=== PATIENT | male | born 1980 | race Caucasian/White ===

== ENCOUNTER 2017-09-12 11:14 | Emergency (ER) | payer BC ==
[2017-09-12] MEDS ORDERED: NS 0.9% 1000 ML* 1,000 ML IV ONE (11:55)
[2017-09-12 12:16] LABS: ABS Basophils 0 10^3/ul (0-0.2); ABS Eosinophils 0.1 10^3/ul (0-0.6); ABS Lymphocytes 0.7 10^3/ul (1.0-4.8); ABS Monocytes 0.3 10^3/ul (0-0.8); ABS Neutrophils 2.7 10^3/ul (1.5-7.7); ABS Nucleated RBC 0 10^3/ul; Eosinophil % 2.7 % (0-6); Hematocrit 44 % (42-52); Hemoglobin 15.1 g/dl (14.0-18.0); Lymphocyte % 18.3 % (25-47); Mean Corpuscular HGB Conc 34 g/dl (31-36); Mean Corpuscular Hemoglobin 32 pg (27-31); Mean Corpuscular Volume 93 fL (80-94); Mean Platelet Volume 8.5 um3 (7.4-10.4); Nucleated Red Blood Cells % 0; Platelet Count 117 10^3/ul (150-450); Red Blood Count 4.71 10^6/ul (4.00-5.40); Red Cell Distribution Width 14 % (10.5-15); White Blood Count 3.8 10^3/ul (3.5-10.8)
[2017-09-12 12:34] LABS: EGFR Non-African American 114.8 (>60)
--- NOTE | 2017-09-12 12:49 | RAD ---
CLINICAL HISTORY: Left flank pain COMPARISON: None TECHNIQUE: Multiple contiguous axial CT scans were obtained of the abdomen and pelvis, without intravenous contrast enhancement. Coronal and sagittal multiplanar reformations are submitted for review. Oral contrast was not administered. FINDINGS: The study is limited by the lack of intravenous contrast. This limits evaluation of the solid organs and vasculature. LUNG BASES: The lung bases are clear. LIVER: The liver is normal in shape, size, contour, and attenuation. There is cavernous chest formation of the portal vein. BILE DUCTS: There is no intrahepatic or extrahepatic biliary dilatation. GALLBLADDER: The gallbladder is normal, without pericholecystic inflammatory change. PANCREAS: There is calcification of the pancreatic head. SPLEEN: The spleen measures 16.4 cm in long axis. There are calcified splenic granulomas. 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 UPPER GI TRACT: Evaluation of the gastrointestinal tract is limited by incomplete gastric distention. The upper GI tract is unremarkable. SMALL BOWEL AND MESENTERY: The small bowel is normal in contour, course, and caliber. There is no obstruction or dilatation. COLON: The colon is normal in contour, course, caliber. There is no pericolonic inflammatory change. There is a tubular, vermiform, hollow viscus that is blind ending, and originates from the cecum, consistent with a normal appendix. There is no periappendiceal inflammatory change. This is best seen on axial images 96 through 107. ADRENALS: Normal bilaterally. KIDNEYS: There is a 0.4 cm calculus of the mid third of the left ureter. There is mild pelvocaliectasis. BLADDER: The bladder is smooth in contour. PELVIC ORGANS: The prostate gland is normal. The seminal vesicles are symmetric. AORTA: The aorta is normal. IVC: Unremarkable LYMPH NODES: There is no lymphadenopathy by size criteria. ABDOMINAL WALL: There is no evidence for abdominal wall hernia. BONES AND SOFT TISSUES: There is advanced osteoarthritis of the right hip. There is post surgical change to the spine. OTHER: None IMPRESSION: 1. 0.4 CM CALCULUS OF THE LEFT MID URETER WITH MILD HYDRONEPHROSIS. 2. 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 3. THERE IS CALCIFICATION OF THE PANCREATIC HEAD SUGGESTIVE OF THE SEQUELA OF CHRONIC PANCREATITIS.
[2017-09-12 12:56] LABS: Urine Appearance Cloudy; Urine Blood 3+ (Negative); Urine Color Yellow; Urine Ketones Negative (Negative); Urine Protein Negative (Negative); Urine Specific Gravity 1.011 (1.010-1.030); Urine Urobilinogen Negative (Negative)
[2017-09-12] MEDS ORDERED: Ciprofloxacin TAB* 500 MG PO ONE (13:45)
[2017-09-12 14:16] VITALS: BP 148/87
--- NOTE | 2017-09-12 15:20 | ED ---
William Alatorre Tiffany, scribed for Adolfo Pearson MD on 09/12/17 at 1209 . Abdominal Pain/Male - HPI Summary HPI Summary: 37 year old M presenting to [facility] complains of left flank pain since two days ago, worse since this morning. States that the pain radiates to his groin. The patient rates the pain 3/10 in severity. Symptoms aggravated by nothing. Symptoms alleviated by nothing. Patient reports hematuria. Was evaluated yesterday at Urgent Care for, dx UTI, symptoms have worsened since. - History of Current Complaint Chief Complaint: EDFlankPain Stated Complaint: ABD PAIN Time Seen by Provider: 09/12/17 11:44 Hx Obtained From: Patient Onset/Duration: Lasting Days - 2 days, Still Present, Worse Since - this morning Severity Currently: Mild Pain Intensity: 3 Pain Scale Used: 0-10 Numeric Location: Flank - left Radiates: Yes Radiates to: Other - groin Aggravating Factor(s): Nothing Alleviating Factor(s): Nothing Associated Signs And Symptoms: Positive: Urinary Symptoms - hematuria - Allergies/Home Medications Allergies/Adverse Reactions: Allergies Allergy/AdvReac Type Severity Reaction Status Date / Time No Known Allergies Allergy Verified 09/12/17 11:34 Home Medications: Home Medications Levothyroxine TAB* [Synthroid TAB*] 125 mcg PO DAILY 09/12/17 [History Confirmed 09/12/17] PMH/Surg Hx/FS Hx/Imm Hx Previously Healthy: No Endocrine/Hematology History: Reports: Hx Thyroid Disease - irratiated Denies: Hx Diabetes Cardiovascular History: Denies: Hx Hypertension Respiratory History: Reports: Hx Asthma - as a child Denies: Hx Chronic Obstructive Pulmonary Disease (COPD) GI History: Denies: Hx Ulcer Sensory History: Reports: Hx Contacts or Glasses Opthamlomology History: Reports: Hx Contacts or Glasses - Surgical History Surgery Procedure, Year, and Place: Spinal fusion in high school Infectious Disease History: No Infectious Disease History: Denies: Hx Hepatitis, Hx Human Immunodeficiency Virus (HIV), Traveled Outside the US in Last 30 Days - Family History Known Family History: Positive: Other - kidney stones - Social History Alcohol Use: Daily Hx Substance Use: No Substance Use Type: Reports: None Hx Tobacco Use: No Smoking Status (MU): Never Smoked Tobacco Review of Systems Negative: Fever Positive: flank pain - left, hematuria All Other Systems Reviewed And Are Negative: Yes Physical Exam - Summary Physical Exam Summary: VITAL SIGNS: Reviewed. GENERAL: Patient is a well-developed and nourished male who is lying comfortable in the stretcher. Patient is not in any acute respiratory distress. HEAD AND FACE: Normocephalic and atraumatic. EYES: PERRLA, EOMI x 2, No injected conjunctiva. EARS: Hearing grossly intact. Ear canals and tympanic membranes are WNL. MOUTH: Oropharynx within normal limits. NECK: Supple, trachea is midline, no adenopathy, no JVD. CHEST: Symmetric, no tenderness at palpation LUNGS: Clear to auscultation bilaterally. No wheezing or crackles. CVS: RRR, S1 and S2 present, no murmurs or gallops appreciated. ABDOMEN: Left posterior abdominal tenderness. EXTREMITIES: FROM in all major joints, no edema, no cyanosis or clubbing. NEURO: Alert and oriented x 3. No acute neurological deficits. Speech is normal. SKIN: Dry and warm Triage Information Reviewed: Yes Vital Signs On Initial Exam: Initial Vitals Temp Pulse Resp BP Pulse Ox 97.1 F 64 16 131/88 99 09/12/17 11:31 09/12/17 11:31 09/12/17 11:31 09/12/17 11:31 09/12/17 11:31 Vital Signs Reviewed: Yes Diagnostics - Vital Signs Vital Signs Temp Pulse Resp BP Pulse Ox 09/12/17 11:31 97.1 F 64 16 131/88 99 - Laboratory Lab Results: Lab Results 09/12/17 09/12/17 09/12/17 Range/Units 12:03 12:04 12:33 WBC 3.8 (3.5-10.8) 10^3/ul RBC 4.71 (4.00-5.40) 10^6/ul Hgb 15.1 (14.0-18.0) g/dl Hct 44 (42-52) % MCV 93 (80-94) fL MCH 32 H (27-31) pg MCHC 34 (31-36) g/dl RDW 14 (10.5-15) % Plt Count 117 L (150-450) 10^3/ul MPV 8.5 (7.4-10.4) um3 Neut % (Auto) 71.5 (38-83) % Lymph % (Auto) 18.3 L (25-47) % Cotton % (Auto) 6.8 (0-7) % Eos % (Auto) 2.7 (0-6) % Baso % (Auto) 0.7 (0-2) % Absolute Neuts (auto) 2.7 (1.5-7.7) 10^3/ul Absolute Lymphs (auto) 0.7 L (1.0-4.8) 10^3/ul Absolute Monos (auto) 0.3 (0-0.8) 10^3/ul Absolute Eos (auto) 0.1 (0-0.6) 10^3/ul Absolute Basos (auto) 0 (0-0.2) 10^3/ul Absolute Nucleated RBC 0 10^3/ul Nucleated RBC % 0 Sodium 137 L (139-145) mmol/L Potassium 4.1 (3.5-5.0) mmol/L Chloride 106 (101-111) mmol/L Carbon Dioxide 25 (22-32) mmol/L Anion Gap 6 (2-11) mmol/L BUN 13 (6-24) mg/dL Creatinine 0.76 (0.67-1.17) mg/dL Est GFR ( Amer) 147.6 (>60) Est GFR (Non-Af Amer) 114.8 (>60) BUN/Creatinine Ratio 17.1 (8-20) Glucose 100 (70-100) mg/dL Calcium 8.7 (8.6-10.3) mg/dL Total Bilirubin 2.30 H (0.2-1.0) mg/dL AST 66 H (13-39) U/L ALT 58 H (7-52) U/L Alkaline Phosphatase 61 (34-104) U/L Total Creatine Kinase 158 (10-223) U/L C-Reactive Protein 2.74 (< 5.00) mg/L Total Protein 6.7 (6.4-8.9) g/dL Albumin 3.6 (3.2-5.2) g/dL Globulin 3.1 (2-4) g/dL Albumin/Globulin Ratio 1.2 (1-3) Lipase 72 (11.0-82.0) U/L Urine Color Yellow Urine Appearance Cloudy Urine pH 7.0 (5-9) Ur Specific [place] 1.011 (1.010-1.030) Urine Protein Negative (Negative) Urine Ketones Negative (Negative) Urine Blood 3+ A (Negative) Urine Nitrate Negative (Negative) Urine Bilirubin Negative (Negative) Urine Urobilinogen Negative (Negative) Ur Leukocyte Esterase Negative (Negative) Urine WBC (Auto) 3+(>20/hpf) A (Absent) Urine RBC (Auto) 3+(>10/hpf) A (Absent) Urine Bacteria Absent (Absent) Urine Glucose Negative (Negative) Result Diagrams: 09/12/17 12:04 09/12/17 12:03 Lab Statement: Any lab studies that have been ordered have been reviewed, and results considered in the medical decision making process. - CT Abd/Pel CT Interpretation Completed By: Radiologist - 1. 0.4 CM CALCULUS OF THE LEFT MID URETER WITH MILD HYDRONEPHROSIS. 2. 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 3. THERE IS CALCIFICATION OF THE PANCREATIC HEAD SUGGESTIVE OF THE SEQUELA OF CHRONIC PANCREATITIS. ED physician has reviewed this report. - EKG 12:10 Cardiac Rate: NL - 73 BPM EKG Rhythm: Sinus Rhythm EKG Interpretation: No ST elevations. Abdominal Pain Fem Course/Dx - Course Assessment/Plan: Initially the patient was placed on a shelter monitor, IV access was obtained, and the patient was started and an IV fluids. Blood test results without any significant abnormality except increased LFTs. Urinalysis positive for WBCs and blood. EKG: Normal sinus rhythm at without any ST elevations. Abdominopelvic CT impression: 0.4 cm calculus of the left mid ureter with mild hydronephrosis. There is cavernous transformation of portal vein with splenomegaly and evidence of portal hypertension. There is calcifications of the pancreatic head suggestive of a sequelae of chronic pancreatitis. In the ED course the patient was given Toradol for the pain and ciprofloxacin for UTI. The patient doesnt have any fever therefore this point I believe the patient is safe to be discharged, follow-up with urology. The patient was instructed to return to the emergency room immediately if the patient develops any fever, more pain, nausea vomiting or diarrhea. The patient understands and agrees. I discussed all the findings and test results with the patient. Patient was instructed to return to the emergency room immediately if any of the symptoms return or worsens. Plan of care was discussed with the patient and understands and agrees. All questions were answered at patient satisfaction. There were no further complaints or concerns. - Diagnoses Differential Diagnosis/HQI/PQRI: Appendicitis, Bowel Obstruction, Constipation, Renal Colic, Ureteral Stone, Urinary Tract Infection Provider Diagnoses: Ureteral stone, Kidney stone Discharge - Sign-Out/Discharge Documenting (check all that apply): Discharge/Admit/Transfer - Discharge Plan Condition: Stable Disposition: HOME Prescriptions: Ciprofloxacin TAB* [Cipro 500 MG TAB*] 500 mg PO BID #6 tab HYDROcodone/ACETAMIN 5-325 MG* [[place] 5-325 TAB*] 1 tab PO Q4H PRN #12 tab MDD 4 PRN Reason: Pain Patient Education Materials: Kidney Stones (ED), Flank Pain (ED) Referrals: [facility] [place] [place]ERR[place] [Outside] - 3 Days No Primary Care Phys,NOPCP [Medical Doctor] - Hector North MD [Medical Doctor] - 3 Days Additional Instructions: FOLLOW UP WITH DR. NORTH, UROLOGY, IN 3 DAYS. YOU ARE ADVISED TO ARRANGE A PRIMARY CARE PROVIDER FOR A FOLLOW-UP APPOINTMENT IN 3 DAYS. RETURN TO THE EMERGENCY DEPARTMENT FOR NEW OR WORSENING SYMPTOMS. - Billing Disposition and Condition Condition: STABLE Disposition: Home The documentation as recorded by the William ryan Tiffany accurately reflects the service I personally performed and the decisions made by , Adolfo Pearson MD.
== END 2017-09-12 14:14 | disposition home or self-care (01) ==
LOC: ED 11:14
DX: N13.2 Hydronephrosis with renal and ureteral calculous obstruction (principal); R16.1 Splenomegaly, not elsewhere classified; R31.9 Hematuria, unspecified; E07.9 Disorder of thyroid, unspecified; J45.909 Unspecified asthma, uncomplicated; Z84.1 Family history of disorders of kidney and ureter
CPT/HCPCS: 36415; 74176; 80053; 81003; 81015; 82550; 83690; 85025; 86140; 87086; 93005; 96360; 99282; A9270-GY

== ENCOUNTER 2017-11-04 09:25 | Emergency (ER) | payer BC ==
[2017-11-04 10:09] VITALS: BP 138/92
--- NOTE | 2017-11-04 10:13 | ED ---
Throat Pain/Nasal Congestion - HPI Summary HPI Summary: Patient is a 37-year-old male who presents emergency department for worsening dental pain over the last 2 weeks. Patient denies facial swelling but notes some fullness to his right side of his neck. Pain is improved with ibuprofen temporarily. He denies fever, chills, nausea, vomiting. He denies past medical history. Patient states he has an appointment with splint dental for this coming Tuesday. Symptoms are mild in severity. Touching affected area makes symptoms worse. - History of Current Complaint Chief Complaint: EDDentalPain Time Seen by Provider: 11/04/17 09:42 Hx Obtained From: Patient - Allergies/Home Medications Allergies/Adverse Reactions: Allergies Allergy/AdvReac Type Severity Reaction Status Date / Time No Known Allergies Allergy Verified 11/04/17 09:32 PMH/Surg Hx/FS Hx/Imm Hx Previously Healthy: Yes Endocrine/Hematology History: Reports: Hx Thyroid Disease - irratiated Denies: Hx Diabetes Cardiovascular History: Denies: Hx Hypertension Respiratory History: Reports: Hx Asthma - as a child Denies: Hx Chronic Obstructive Pulmonary Disease (COPD) GI History: Denies: Hx Ulcer History: Reports: Hx Kidney Stones - LEFT 2018 Sensory History: Reports: Hx Contacts or Glasses Opthamlomology History: Reports: Hx Contacts or Glasses - Surgical History Surgery Procedure, Year, and Place: Spinal fusion in high school Infectious Disease History: No Infectious Disease History: Denies: Hx Hepatitis, Hx Human Immunodeficiency Virus (HIV), Traveled Outside the US in Last 30 Days - Family History Known Family History: Positive: Unknown, Other - kidney stones - Social History Occupation: Employed Full-time Lives: Alone Alcohol Use: Daily Hx Substance Use: No Substance Use Type: Reports: None Hx Tobacco Use: No Smoking Status (MU): Never Smoked Tobacco Review of Systems Constitutional: Negative Negative: Fever, Chills Positive: Dental Pain Gastrointestinal: Negative Negative: Vomiting, Nausea All Other Systems Reviewed And Are Negative: Yes Physical Exam Triage Information Reviewed: Yes Vital Signs On Initial Exam: Initial Vitals Temp Pulse Resp BP Pulse Ox 99.1 F 79 18 140/92 97 11/04/17 09:27 11/04/17 09:27 11/04/17 09:27 11/04/17 09:27 11/04/17 09:27 Vital Signs Reviewed: Yes Appearance: Positive: Well-Appearing - Patient sitting on bed in no acute distress. Skin: Positive: Warm, Dry Head/Face: Positive: Normal Head/Face Inspection Eyes: Positive: Normal ENT: Positive: Other - Numerous dental fillings noted to right back molars. No drainable abscess noted. Surrounding gums are erythematous and mildly edematous. No facial swelling. No swelling of the tongue. No submandibular edema. No trismus. Neck: Positive: Supple, Nontender, No Lymphadenopathy Neurological: Positive: Normal, CN Intact II-III Psychiatric: Positive: Affect/Mood Appropriate Diagnostics - Vital Signs Vital Signs Temp Pulse Resp BP Pulse Ox 11/04/17 09:27 99.1 F 79 18 140/92 97 - Laboratory Lab Statement: Any lab studies that have been ordered have been reviewed, and results considered in the medical decision making process. EENT Course/Dx - Course Course Of Treatment: Patient presenting for ongoing dental pain. He is afebrile and well-appearing. Will start on penicillin for suspected dental abscess. Advised to rotate between Tylenol and Motrin for pain as directed. To apply warm compresses to face for pain. Follow-up with dentist on Tuesday as scheduled. To return to ER symptoms change or worsen. Patient understands and agrees with plan. - Differential Diagnoses Differential Diagnoses: Dental Abscess, Dental Caries, Gingivitis, Periodontic Abscess, Periodontic Disease, Peritonsillar Ulcer, Pharyngitis - Diagnoses Provider Diagnoses: Dentalgia Discharge - Sign-Out/Discharge Documenting (check all that apply): Patient Departure - Discharge Plan Condition: Good Disposition: HOME Prescriptions: Penicillin VK 500 MG TAB(NF) [Penicillin VK 500 mg Tab] 500 mg PO QID #40 tab Patient Education Materials: Dental Abscess (ED) Referrals: Justine Batista MD [Primary Care Provider] - Additional Instructions: Follow up with your dentist on Tuesday as scheduled Take antibiotic as directed Can take 800mg ibuprofen every 8 hours Can take 500-1000mg tylenol every 8 hours Apply warm compress to face Return to ER if symptoms change or worsen - Billing Disposition and Condition Condition: GOOD Disposition: Home
== END 2017-11-04 10:06 | disposition home or self-care (01) ==
LOC: ED 09:25
DX: K08.89 Other specified disorders of teeth and supporting structures (principal); M54.2 Cervicalgia
CPT/HCPCS: 99282

== ENCOUNTER 2018-10-12 07:30 | Inpatient (IN) | payer BC ==
--- NOTE | 2018-09-28 11:54 | HP ---
DATE OF ADMISSION: 10/12/2018. DATE OF OFFICE VISIT: 09/25/2018. SURGEON: Dr. Cinthia Kyle * (dictated by SAUL Oliveira). PROCEDURE: Right total hip arthroplasty. CHIEF COMPLAINT: Right hip pain. HISTORY OF PRESENT ILLNESS: Mr. Weathers is a 38-year-old gentleman with severe right hip pain. He has failed conservative treatment and elected to proceed with a right total hip arthroplasty. PAST MEDICAL HISTORY: Anxiety, asthma, hypothyroidism. PAST SURGICAL HISTORY: Tracheal esophageal fistula repair and a thoracic fusion for scoliosis. CURRENT MEDICATIONS: 1. Levothyroxine 150 mcg a day. 2. Ibuprofen as needed. 3. Albuterol Sulfate 4 times a day as needed. ALLERGIES: No known drug allergies. FAMILY HISTORY: Denies. SOCIAL HISTORY: He is a 38-year-old gentleman who lives alone. He does not smoke. He uses occasional marijuana and alcohol. REVIEW OF SYSTEMS: A complete 14 point review of systems were reviewed with the patient and is positive for asthma and seasonal allergies. He denies a history of DVT, PE, hepatitis, HIV, or anesthesia problems. PHYSICAL EXAMINATION GENERAL: He is well-developed, well-nourished, in no acute distress. VITAL SIGNS: He stands 6 feet tall, weighs 216 pounds. Blood pressure 140/88, heart rate 75. HEENT: Normocephalic, atraumatic. NECK: Supple. No palpable lymph nodes. CARDIO: Regular rate and rhythm. Strong S1, S2. PULMONARY: The lungs are clear to auscultation bilaterally. ABDOMEN: Soft, nontender, nondistended. MUSCULOSKELETAL: Right lower extremity: His skin is intact. There are no open wounds or abrasions. He walks with an antalgic type gait favoring his right hip. He has severely limited internal and external rotation of the right hip. He is able to dorsiflex and plantarflex and has a 2+ dorsalis pedis pulse. NEUROLOGIC: He is alert and oriented times three. ASSESSMENT AND PLAN: Mr. Weathers is a 38-year-old gentleman with severe end- stage osteoarthritis of the right hip secondary to advanced avascular necrosis. He has elected to proceed with a right total hip arthroplasty. The surgery is scheduled for 10/12/[address] Kyle discussed the risks and benefits of the surgery at today's visit and all his questions were answered. He will follow-up with Dr. Kyle two weeks after the surgery. SAUL OLIVEIRA [id number]/CPS #: [id number] [email or web address]
[~2018-10-12 07:30] MED LIST: Buffered Lidocaine 1% SYRIN* 1 ML/SYRINGE INTRADERM ONE; Lactated Ringers 1000 ML Bag* 1,000 ML IV SCH; Tranexamic Acid 1,000 MG in NS 0.9% 50 ML* (outpatient use) IV SCH
[2018-10-12] MEDS ORDERED: ROPIVACAINE 5 MG/ML 30 ML BTL (0.5%) ONE (07:53)
[2018-10-12] MEDS ORDERED: ceFAZolin 2 GM in NS PREMIX(*) 2 GM/100 ML BAG IVPB ONE (10:56)
--- OUTSIDE RECORDS SUMMARY | 2018-10-12 11:08 | XMS REPORT | Continuity of Care Document ---
:1980 External Reference #:[id number] Author Name Ivanna Walter Care Team Providers Name Role Phone Mary James M.D. Primary Care Physician Unavailable Payers Date Identification Numbers Payment Provider Subscriber Policy Number: [id number] [employer] Gerry Weathers PayID: [id number] [address] [address] [place] [address] Problems Active Problems Provider Date Aseptic necrosis of head of femur Cinthia Kyle M.D. Onset: 02/10/2018 Family History Date Family Member(s) Observation Comments General No Current Problems Social History Type Date Description Comments Sex Unknown Lives With Alone Occupation Teacher ETOH Use Drinks 3 Alcoholic Beverages Per Week Tobacco Use Start: Unknown Patient has never smoked Smoking Status Reviewed: 09/25/18 Patient has never smoked Exercise Type/Frequency Exercises sporadically Allergies, Adverse Reactions, Alerts Description No Known Drug Allergies Medications Active Medications SIG Qnty Indications Ordering Provider Date Levothyroxine Sodium 1 by mouth every Unknown day 150mcg Tablets Ibuprofen by mouth every 4 Unknown 400mg Tablets to 6 hours as needed Albuterol Sulfate 1 vial via Unknown nebulizer 4 times (2.5mg/3ML) 0.083% daily as needed Nebulizer Vital Signs Date Vital Result Comment 09/25/2018 8:57am Height 72 inches 6'0" Weight 216.00 lb Heart Rate 75 /min BP Systolic 140 mmHg BP Diastolic 88 mmHg Respiratory Rate 16 /min Body Temperature 97.0 F Pain Level 0 BMI (Body Mass Index) 29.3 kg/m2 06/09/2018 2:56pm Height 72 inches 6'0" Weight 221.00 lb BP Systolic 122 mmHg BP Diastolic 78 mmHg Pain Level 3 BMI (Body Mass Index) 30.0 kg/m2 02/10/2018 8:08am Height 72 inches 6'0" Weight 228.25 lb Heart Rate 66 /min BP Systolic 130 mmHg BP Diastolic 82 mmHg Respiratory Rate 18 /min Pain Level 7 BMI (Body Mass Index) 31.0 kg/m2 Encounters Type Date Location Provider Dx Diagnosis Office Visit 06/09/2018 Orth[facility] Cinthia Kyle M87.051 Idiopathic aseptic 2:45[facility] necrosis of right femur M25.551 Pain in right hip Office Visit 02/10/2018 8:00a [facility] Cinthia Kyle M25.551 Pain in right Of [facility]. 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 at [facility]10/12/2018 1:15 pm - JASS Guzmán at [facility]10/12/2018 1:15 pm - SAUL Keating at [facility]10/12/2018 1:15 pm - SAUL Albarran at [facility]10/12/2018 1:15 pm - Cinthia Kyle M.D. at [facility]09/25/2018 - Cinthia Kyle M.D.M25.551 Pain in right hipFollow up:Follow up: 2 weeks after niftpfuI06.051 Idiopathic aseptic necrosis of right femur
--- OUTSIDE RECORDS SUMMARY | 2018-10-12 11:08 | XMS REPORT | Continuity of Care Document ---
:1980 External Reference #:[id number] Author Name SAUL Albarran Address [address] , [place] [address] Care Team Providers Name Role Phone Mary James M.D. Primary Care Physician Unavailable Payers Date Identification Numbers Payment Provider Subscriber Policy Number: [id number] [employer] Pat Weathers PayID: [id number] [address] [address] [place] [address] Problems Active Problems Provider Date Aseptic necrosis [...] 7 BMI (Body Mass Index) 31.0 kg/m2 Results Test Date Facility Test Result H/L Range Note Inr/Protime 10/02/2018 [facility] Inr 0.99 N 0.82-1.09 1, [address] [place] [address] [phone] Laboratory test 10/02/2018 [facility] Partial 33.7 seconds N 26.0-38.[address] [place] [address] PTT [phone] Type & Screen 10/02/2018 [facility] Patient Blood B Positive [address] [place] [address] [phone] Antibody Screen NEGATIVE Urinalysis Profile 10/02/2018 [facility] Urine Color Yellow [address] [place] [address] [phone] Urine Appearance Clear Urine Specific [place] 1.014 N 1.010-1.030 Urine pH 6.0 N 5-9 Urine Urobilinogen Negative Negative Urine Ketones Negative Negative Urine Protein Negative Negative Urine Leukocytes Negative Negative Urine Blood 1+ Abnormal Negative Urine Nitrite Negative Negative Urine Bilirubin Negative Negative Urine Glucose Negative Negative Urine White Blood Cell Absent Absent Urine Red Blood Cell Trace(0-2/hpf) Absent Urine Bacteria Absent Absent Urine Culture And 10/02/2018 [facility] Urine Culture SEE RESULT [address] [place] [address] [phone] IDIOPATHIC ASEPTIC NECROSIS OF RIGHT FEMUR, PAIN I 2 Standard intensity warfarin therapeutic range: 2.0-3.0 High intensity warfarin therapeutic range: 2.5-3.5 3 SEE RESULT BELOW Name: PAT WEATHERS DOB: [address]: Cinthia Kyle MD Acct: [id number] Unit: [id number] AGE: 38 Location: PAT Re10/02/18 SEX: M Status: REG REF SPEC: [id number] MONICA: 10/02/18-140 [facility] DR: Cinthia Kyle MD REQ: [id number] RECD: 10/02/18 STATUS: COMP ALEXEYHR DR: Mary James MD _ SOURCE: URINE SPDESC: ORDERED: Urine Culture Procedure Result Reported Site Urine Culture Final 10/03/18- 1247 ML No Growth (<1,000 CFU/mL) * - Main Lab . END OF REPORT DEPARTMENT OF PATHOLOGY, [address] [place] [address] Tian Horner M.D. Director [facility] # [id number] Encounters Type Date Location Provider Dx Diagnosis Office Visit 06/09/2018 Orth[facility] Cinthia Kyle M87.051 Idiopathic aseptic 2:45[facility] necrosis of right femur M25.551 Pain in right hip Office Visit 02/10/2018 8:00a [facility] Cinthia Kyle M25.551 Pain in right [facility] 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 at [facility]10/12/2018 2:00 pm - JASS Guzmán at [facility]10/12/2018 2:00 pm - SAUL Keating at [facility]10/12/2018 2:00 pm - SAUL Albarran at [facility]10/12/2018 2:00 pm - Cinthia Kyle M.D. at [facility]09/25/2018 - Cinthia Kyle M.D.M25.551 Pain in right hipFollow up:Follow up: 2 weeks after swcizdrB28.051 Idiopathic aseptic necrosis of right femur
[2018-10-12] MEDS ORDERED: Levalbuterol 1.25MG/0.5ML NEB INH ONE (11:17)
[2018-10-12] MEDS ORDERED: Levalbuterol 1.25MG/0.5ML NEB ONE (11:20)
[2018-10-12] MEDS ORDERED: Midazolam* 1 MG/ML 2 ML VIAL (2 MG) ONE ×2 (11:22→15:32)
[2018-10-12] MEDS ORDERED: Lidocaine 2% PF * 5 ML VIAL ONE (11:22)
[2018-10-12] MEDS ORDERED: fentaNYL* 50 MCG/ML 2 ML VIAL (100 MCG VIAL) ONE ×2 (11:22→14:19)
[2018-10-12] MEDS ORDERED: Propofol* 10 MG/ML 20 ML BTL ONE ×2 (11:22→15:04)
[2018-10-12] MEDS ORDERED: Propofol* 500 MG/50 ML BTL ONE (11:22)
[2018-10-12] MEDS ORDERED: KETAMINE HCL* 50 MG/ML 10 ML VIAL ONE (11:23)
[2018-10-12] MEDS ORDERED: Bupivacaine 0.5% SDV PF* 30ML VIAL ONE (14:00)
[2018-10-12] MEDS ORDERED: Phenylephrine 40 MCG/ML SYRINGE ONE (14:11)
[2018-10-12] MEDS ORDERED: Dexamethasone IV* 4 MG/ML 1 ML (4 MG) ONE (14:25)
[2018-10-12] MEDS ORDERED: EPHEDrine (Pressors)* 50 MG/ML VIAL ONE (14:27)
[2018-10-12] MEDS ORDERED: Ondansetron ODT TAB* 4 MG PO PRN (14:36)
[2018-10-12] MEDS ORDERED: Acetaminophen TAB* 325 MG PO PRN ×2 (14:36→16:24)
[2018-10-12] MEDS ORDERED: Ketorolac INJ* 30 MG/ML 1 ML VIAL IV PRN (14:36)
[2018-10-12] MEDS ORDERED: Naloxone* 0.4 MG/ML 1 ML VIAL IV PRN (14:36)
[2018-10-12] MEDS ORDERED: oxyCODONE TAB* 5 MG TAB PO PRN ×2 (14:36→16:24)
[2018-10-12] MEDS ORDERED: Magnesium Hydroxide LIQ* 30 ML UDC PO PRN (16:24)
[2018-10-12] MEDS ORDERED: diPHENhydraMINE IV* 50 MG/ML 1 ml VIAL (BENADRYL) IV PRN (16:24)
[2018-10-12] MEDS ORDERED: Bisacodyl SUPP* 10 MG SUPP PR PRN (16:24)
[2018-10-12] MEDS ORDERED: Cyclobenzaprine TAB* 10 MG PO PRN (16:24)
[2018-10-12] MEDS ORDERED: Ondansetron INJ* 2 MG/ML VIAL IV PRN (16:24)
[2018-10-12] MEDS ORDERED: Morphine 4 MG/ML VIAL (1 ml) 4 MG/ML VIAL IV PRN (16:24)
[2018-10-12] MEDS ORDERED: oxyCODONE/Acetamin 5/325 MG* TAB PO PRN (16:24)
[2018-10-12] MEDS ORDERED: Albuterol HFA INHALER* 8 gm MDI INH PRN (16:28)
[2018-10-12] MEDS ORDERED: Ketorolac INJ* 30 MG/ML 1 ML VIAL ONE (17:05)
[2018-10-12] MEDS ORDERED: HYDROmorphone INJ* 0.5 MG/0.5 ML SYRINGE ONE (17:07)
[2018-10-12] MEDS: HYDROmorphone INJ1* 1 MG/ML SYRINGE IV PRN ×3 (17:09→17:38)
[2018-10-12] MEDS ORDERED: Ondansetron INJ* 2 MG/ML VIAL ONE (17:42)
--- NOTE | 2018-10-12 18:02 | OP ---
Operative Report - Blank - Operative Report Date of Operation: 10/12/18 Note: PAT CAZARES 1980 Date Of Surgery: 10/12/18 Cinthia Kyle MD Substance Abuse Clinician: Vilma HUGHES did help throughout the procedure with preparation of the hip, wound retraction, manipulation of the hip, and wound closure. Anesthesiologist: Vilma Mckoy MD Anesthesia Type: Spinal Preoperative Diagnosis: Right severe degenerative osteoarthritis of the hip Postoperative Diagnosis: As above Procedure Performed: Right Total Hip Arthroplasty Complications: None Specimen: Femoral head and acetabular reamings sent to pathology. Hardware used: This is uncemented Leonid total hip arthroplasty hardware for the femur a size 6 accolade II with 127 neck angle femoral component, for the acetabulum a size 54E trident II tritanium cluster hole shell, a 20 mm screw, for the insert a size 42E MDM cementless liner insert, and for the femoral head a size 28 +0 V40 femoral head with 28/48/42E MDM X 3 insert. Brief history/Indication: PAT CAZARES was known in clinic and had a history of severe right hip pain. He failed conservative treatment with anti- inflammatories, pain pills, intra-articular injections and physical therapy. He elected to undergo right total hip arthroplasty due to continued pain and decreased quality of life. Radiographs showed severe end stage osteoarthritis of the hip with bone on bone contact. He had acetabular and femoral head bony deformity with extensive subchondral cyst formation Informed consent was obtained from the patient. He understood the risks of surgery included but were not limited to: bleeding, infection, damage to nearby structures, intraoperative fracture, nerve palsy, failure of the hardware, early loosening, stiffness or loss of motion, dislocation, leg length discrepancy, anesthesia complications, stroke, heart attack, blood clot and . He understood that his young age made him more likely to need revision surgery in the future. He wished to proceed due to decreased quality of life and pain. Intra-Operative findings: Intraoperatively the patient was noted to have severe loss of cartilage of the acetabulum and femoral head. His acetabulum had extensive osteophyte formation and deformity. His femoral head had subchondral cysts and some collapse. The patient was noted to have extreme soft tissue contracture around the hip as well. Description of the Procedure: PAT CAZARES was identified in the preanesthesia unit. His right hip was marked as the correct operative side. Informed consent was signed and placed in the chart. The patient was taken to the operating room and placed under anesthesia without complication. A farmer catheter was placed. The patient was placed on the peg board with all bony prominences well padded. The right lower extremity was prepped and draped in the usual sterile fashion. Preoperative time-out was made to correctly identify the patient, side and site. Appropriate intraoperative antibiotics were given within one hour of incision. A standard posterior incision was made and carried sharply down to the lateral fascia. A new 10 blade was used to make an incision in the fascia in line with the skin incision. A charnley retractor was placed. The piriformis and conjoined tendons were identified and elevated off the posterolateral femur using electrocautery. These were tagged with number 5 Ethibond. Next electrocautery was used to make a posterolateral capsular flap and this was tagged with number 5 Ethibonds. The hip was carefully dislocated. Lesser trochanter to the center of the femoral head was measured at 60 mm. The oscillating saw was used to make the femoral neck cut. The femoral head was carefully removed. The femur was retracted anteriorly and the acetabular retractors were placed. Long-handled knife was used to sharply remove any remaining labrum from the acetabular rim. The acetabulum was sequentially reamed up to a size 53. A bleeding subchondral bone bed was obtained. A trial liner was placed and had excellent fit and stability. A 54E trident II tritanium cup with one 20 mm screw was placed and had excellent stability with appropriate anteversion and abduction angle. A size 42E cementless MDM liner was impacted into the acetabular shell. The liner was checked for stability and was stable. Next attention was turned to preparation of the femoral canal. A canal finder was used to enter the proximal femur. The femoral canal was sequentially broached up to a size 6 femoral broach trial. A trial neck and 28 + 0 with 28/48 /42E liner trial femoral head was chosen. Lesser trochanter to center of the femoral head measurement was satisfactory. The hip was reduced and taken through a range of motion. The hip was stable in all positions with good soft tissue tension and appropriate leg lengths. The hip was dislocated and all trials were removed. The final implant chosen was a accolade II size 6 with 127 neck angle. This stem was impacted into the femoral canal without difficulty. The stem was stable with appropriate anteversion. The femoral head chosen was a 28 +0 with a 28/48/42E X3 MDM insert. The head was impacted onto the femoral neck without difficulty. The final lesser trochanter to center of the femoral head measurement was satisfactory. The hip was reduced and taken through a range of motion. The hip was stable in all positions with good soft tissue tension and appropriate leg lengths. The hip was copiously irrigated with sterile saline. The previously tagged capsule and tendons were repaired to the posterolateral femur through two trochanteric drill holes. The lateral fascia layer was closed using number 1 vicryls. The rest of the incision was closed in a layered fashion using 0 and 2-0 vicryls. The skin was closed using 3-0 monocryl suture and Dermabond. Sterile adaptic, 4x4s and paper tape was used to cover the incision. The patients anesthesia was reversed without difficulty. He was taken to the PACU in stable condition. Intended weight-bearing will be as tolerated with posterior hip precautions.
[2018-10-12] MEDS: Lactated Ringers 1000 ML Bag* 1,000 ML IV SCH (19:47)
[2018-10-12] MEDS: Magnesium Hydroxide LIQ* 30 ML UDC PO SCH (22:44)
[2018-10-12] MEDS: Docusate CAP* 100 MG PO SCH (22:44)
[2018-10-12] MEDS: ceFAZolin 1 GM ADVAN(*) 1 GM in NS 0.9% 50 ML* 50 ML IVPB SCH (22:44)
[2018-10-12] MEDS: oxyCODONE/Acetamin 5/325 MG* TAB PO PRN (23:15)
[2018-10-13] MEDS: Lactated Ringers 1000 ML Bag* 1,000 ML IV SCH (05:44)
[2018-10-13] MEDS: ceFAZolin 1 GM ADVAN(*) 1 GM in NS 0.9% 50 ML* 50 ML IVPB SCH (05:46)
[2018-10-13] MEDS ORDERED: Levothyroxine TAB* 125 MCG TAB PO SCH (06:00)
[2018-10-13 06:08] LABS: Hematocrit 44 % (42-52); Hemoglobin 14.9 g/dL (14.0-18.0); Mean Platelet Volume 8.6 fL (7.4-10.4); Platelet Count 118 10^3/uL (150-450)
[2018-10-13 06:22] LABS: BUN/Creatinine Ratio 19.1 (8-20); Calcium 8.7 mg/dL (8.6-10.3); EGFR African American 157.1 (>60); EGFR Non-African American 129.8 (>60); Potassium 4.3 mmol/L (3.5-5.0)
[2018-10-13] MEDS ORDERED: Levothyroxine TAB* 150 MCG TAB PO SCH (06:30)
[2018-10-13] MEDS: oxyCODONE/Acetamin 5/325 MG* TAB PO PRN ×2 (08:37→14:41)
[2018-10-13] MEDS: Docusate CAP* 100 MG PO SCH (08:37)
[2018-10-13] MEDS ORDERED: Vitamin THERAPEUTIC TAB PO SCH (09:00)
[2018-10-13] MEDS ORDERED: Apixaban* 2.5 MG TAB PO SCH (09:00)
--- NOTE | 2018-10-13 10:23 | DS ---
Orthopedic Discharge Summary - Discharge Summary Date of Admission:10/12/18 Date of Discharge: 10/13/18 Date of Surgery: 10/12/18 Attending Orthopedic Provider: Pre-operative Diagnosis: Degenerative arthritis right hip Operative Procedure: Right total hip arthroplasty Disposition of Patient: home Condition of Patient: Stable History: PAT CAZARES is a 38 year old M with years of increasingly severe right hip pain. Patient has failed conservative management and has elected to undergo a right total hip replacement Hospital Course: PAT was admitted to [facility] on 10/12/18. Patient underwent a right total hip without complication followed by a brief recovery in PACU and transfer to the Short Stay Surgical Unit in stable condition. Our hospitalist service, physical therapy and occupational therapy also participated in this patients care. Post-op day 1: patient was alert and in no acute distress. Dressing was clean, dry and intact. Operative extremity dorsiflexion and plantarflexion intact, sensation intact to light touch distally , DP2+, dressing was changed, incision was clean, dry and intact. Patient was deemed to be medically and orthopedically stable for discharge. Physical therapy goals were met. He will maintain strict hip precautions per Dr. Kyle, patient voices understanding. Home Medications Medication Instructions Recorded Confirmed Type Levothyroxine TAB* [Synthroid 125 150 mcg PO QAM 09/12/17 10/12/18 History MCG TAB*] Albuterol HFA INHALER* [Ventolin 2 puff INH Q4H PRN 10/02/18 10/12/18 History HFA Inhaler*] Apixaban* [Eliquis*] 2.5 mg PO BID #60 tab 10/13/18 Rx Docusate CAP* [Colace Cap*] 100 mg PO BID cap 10/13/18 Rx oxyCODONE/Acetamin 5/325 MG* 1 - 2 tab PO Q4H PRN #70 tab MDD 10 10/13/18 Rx [Percocet 5/325 TAB*] Discharge home after therapy this afternoon Dressing right hip to be changed prior to discharge Eliquis and Percocet sent to [facility] Follow up as scheduled in 10-[address] Kyle
[2018-10-13] MEDS: Magnesium Hydroxide LIQ* 30 ML UDC PO SCH (11:07)
[2018-10-13 12:32] VITALS: BP 122/64
[2018-10-13] MEDS ORDERED: Cephalexin CAP* 500 MG PO ONE (13:30)
== END 2018-10-13 15:45 | disposition home or self-care (01) | DRG 301 ==
LOC: AA 10:43 → SSU 18:51
PROVIDERS: ADMIT Orthopaedic Surgery Adult Reconstructive Orthopaedic Surgery; ATTEND Orthopaedic Surgery Adult Reconstructive Orthopaedic Surgery
PROC: 0SR903A Replacement of Right Hip Joint with Ceramic Synthetic Substitute, Uncemented, Open Approach (ICD-10-PCS; principal; 2018-10-12 13:30)
DX: M16.11 Unilateral primary osteoarthritis, right hip (principal); M87.851 Other osteonecrosis, right femur; F41.9 Anxiety disorder, unspecified; E03.9 Hypothyroidism, unspecified; M85.68 Other cyst of bone, other site; M25.751 Osteophyte, right hip; J45.909 Unspecified asthma, uncomplicated; Z72.89 Other problems related to lifestyle; Z98.1 Arthrodesis status
CPT/HCPCS: 36415; 72170; 80048; 85014; 85018; 85049; 88304; 88311; A9270-GY; C1713; C1776; J0690; J1100; J1170; J1885; J2250; J2405; J2704; J2795; J3010; J3490